=== PATIENT | male | born 1995 | race Caucasian/White ===

== ENCOUNTER 2024-11-20 09:36 | Emergency (ER) | payer SELFPAY ==
[2024-11-20 10:05] VITALS: BP 127/90; PULSE 81; RESP 18; TEMP 36.8; O2SAT 98; BMI 23.6
--- NOTE | 2024-11-20 10:17 | W.ED.NAVMDI ---
HPI - Nausea/Vomiting/Diarrhea General: Chief complaint: Nausea/Vomiting/Diarrhea Stated complaint: n/v Time Seen by Provider: 11/20/24 10:12 Source: patient Mode of arrival: ambulatory Limitations: no limitations History of Present Illness: 29-year-old male states has been having nausea vomiting diarrhea since this morning at 2 AM. He states not been able to tolerate any liquids states he feels dehydrated been having spasms. He denies any abdominal pain denies any fever. Associated nausea: Yes Associated symtoms: Reports nausea; Denies chest pain, dysuria or headache(s) Related Data Previous Rx's Medication Instructions Recorded ondansetron 4 mg disintegrating 4 mg PO Q6H PRN nausea and 11/20/24 tablet vomiting #14 tabs Allergies Allergy/AdvReac Type Severity Reaction Status Date / Time No Known Allergies Allergy Verified 11/20/24 10:08 Review of Systems Const: Denies: fever(s), chills, body aches or change in appetite ENMT: Denies: throat pain or dental pain Card: Denies: chest pain Resp: Denies: dyspnea GI: Reports: nausea and vomiting; Denies: abdominal pain or diarrhea : Denies: dysuria Musc: Denies: neck pain or back pain Skin/Breast: Denies: rash Neuro: Denies: headache(s) Physical Exam Const: COMMON NORMALS: no acute distress, patient oriented x3 and healthy appearing HENMT: COMMON NORMALS: normocephalic and atraumatic HEAD & SCALP: normocephalic and atraumatic Eye: COMMON NORMALS: Equal, round and reactive pupils present PUPIL: Yes Equal, round and reactive pupils present Neck/C-Spine: COMMON NORMALS: full ROM and supple Chest: COMMONS NORMALS: normal inspection of the chest Resp: COMMON NORMALS: normal respiratory effort, No retractions, No use of accessory muscles and clear to auscultation bilaterally AUSCULTATION: clear to auscultation bilaterally Cardio: COMMON NORMALS: regular rate, regular rhythm and No murmurs present (Cardio) RATE: regular rate RHYTHM: regular rhythm GI: COMMON NORMALS: Normal to inspection, nondistended, normoactive bowel sounds present, Soft to palpation, non-tender and no masses PALPATION: Yes Soft to palpation Extremity: COMMON NORMALS: normal to inspection and full ROM Neuro: COMMON NORMALS: patient oriented x3, moves all extremities and no focal motor deficits Psych: COMMON NORMALS: mental status grossly normal, Normal thought process present and cooperative THOUGHT PROCESS: Normal thought process present Skin: COMMON NORMALS: no rashes or lesions noted and no wounds GENERAL SKIN EXAM: no rashes or lesions noted Course Vital Signs: Vital signs: Vital Signs Temperature 98.3 F 11/20/24 10:05 Pulse Rate 81 11/20/24 10:05 Respiratory Rate 18 11/20/24 10:05 Blood Pressure 127/90 11/20/24 10:05 Pulse Oximetry 98 11/20/24 10:05 Oxygen Delivery Me thod Room Air 11/20/24 10:05 MDM - Nausea/Vomiting/Diarrhea Medical Decision Making Patient presents here with vomiting diarrhea is likely viral in origin he feels improved here after fluids and nausea medicine he is able to tolerate p.o. abdominal exam is benign no signs of acute surgical abdomen he is stable for discharge follow-up with PCP return if worsening. Medical Records I reviewed the patient's medical records. Lab Data I reviewed the patient's lab results. 11/20/24 10:26 11/20/24 10:26 Laboratory Results WBC 11.50 10^3/uL (3.29-11.43) H 11/20/24 10:26 RBC 5.65 10^6/uL (3.85-5.65) 11/20/24 10:26 Hgb 16.80 g/dL (11.27-16.99) 11/20/24 10:26 Hct 48.0 % (37-53) 11/20/24 10:26 MCV 85.0 fl (82-101) 11/20/24 10:26 MCH 29.7 pg (27-33) 11/20/24 10:26 MCHC 35.0 g/dL (30-55) 11/20/24 10:26 RDW 13.3 % (12.1-15.1) 11/20/24 10:26 Plt Count 291 10^3/cmm (157-399) 11/20/24 10:26 MPV 9.1 fL (7.4-10.4) 11/20/24 10:26 Neut % (Auto) 90.5 % 11/20/24 10:26 Lymph % (Auto) 1.5 % 11/20/24 10:26 [place] % (Auto) 7.4 % 11/20/24 10:26 Eos % (Auto) 0.0 % 11/20/24 10:26 Baso % (Auto) 0.3 % 11/20/24 10:26 Neut # (Auto) 10.41 10^3/uL (1.8-7.7) H 11/20/24 10:26 Lymph # (Auto) 0.2 10^3/uL (0.8-4.8) L 11/20/24 10:26 [place] # (Auto) 0.9 10^3/uL (0.2-0.9) 11/20/24 10: Eos # (Auto) 0.0 10^3/uL (0.0-0.8) 11/20/24 10: Baso # (Auto) 0.0 10^3/uL (0.0-0.1) 11/20/24 10: Nucleated RBC % (auto) 0 % 11/20/24 10: Nucleated RBCs # 0.0 /100WBC 11/20/24 10:26 Sodium 138 mmol/L (136-145) 11/20/24 10: Potassium 4.0 mmol/L (3.5-5.1) 11/20/24 10: Chloride 97 mmol/L (98-107) L 11/20/24 10: Carbon Dioxide 22 mmol/L (22-29) 11/20/24 10:26 Anion Gap 23.0 (5-19) H 11/20/24 10:26 BUN 20 mg/dL (6-20) 11/20/24 10:26 Creatinine 1.2 mg/dL (0.7-1.2) 11/20/24 10:26 GFR Calculation 71.1 mL/min (90-130) L 11/20/24 10:26 Glucose 157 mg/dL (65-115) H 11/20/24 10: Calculated Osmolality 292 mOsm/kg (285-295) 11/20/24 10:26 Calcium 9.6 mg/dL (8.5-10.5) 11/20/24 10:26 Total Bilirubin 1.5 mg/dL (0.15-1.2) H 11/20/24 10:26 AST 21 U/L (0-40) 11/20/24 10:26 ALT 24 U/L (0-41) 11/20/24 10:26 Alkaline Phosphatase 80 U/L (40-130) 11/20/24 10:26 Total Protein 7.9 g/dL (6.6-8.7) 11/20/24 10:26 Albumin 4.9 g/dL (3.5-5.2) 11/20/24 10:26 Globulin 3.0 g/dL (1.3-4.6) 11/20/24 10:26 Lipase 35 U/L (13-60) 11/20/24 10:26 No radiology studies performed this visit Discharge Plan Discharge Patient Disposition: Home Clinical Impression: Vomiting Condition: Stable Prescriptions: New ondansetron 4 mg tablet,disintegrating 4 mg PO Q6H PRN (Reason: nausea and vomiting) Qty: 14 0RF Discharge Orders: Discharge ED (Routine); Ordered 11/20/24 Ordered By: Niecy Nicole Discharge Diet: Advance as tolerated Discharge Activity: Resume usual activity Patient Instructions: Acute Nausea and Vomiting (ED) Coding Level of Care Code 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
[2024-11-20 10:38] VITALS: PULSE 83; O2SAT 96
[2024-11-20 10:38] LABS: Basophils % 0.3 %; Lymphocytes # 0.2 10^3/uL (0.8-4.8); Lymphocytes % 1.5 %; Mean Corpuscular Hemoglobin 29.7 pg (27-33); Mean Platelet Volume 9.1 fL (7.4-10.4); Monocytes # 0.9 10^3/uL (0.2-0.9); Monocytes % 7.4 %; Neutrophils # 10.41 10^3/uL (1.8-7.7); Neutrophils % 90.5 %; Nucleated Red Blood Cells % 0 %; Platelet Count 291 10^3/cmm (157-399); Red Blood Count 5.65 10^6/uL (3.85-5.65); Red Cell Distribution Width 13.3 % (12.1-15.1)
[2024-11-20 10:52] LABS: Alanine Aminotransferase 24 U/L (0-41); Albumin Level 4.9 g/dL (3.5-5.2); Alkaline Phosphatase 80 U/L (40-130); Aspartate Amino Transferase 21 U/L (0-40); Blood Urea Nitrogen 20 mg/dL (6-20); Calcium 9.6 mg/dL (8.5-10.5); Carbon Dioxide 22 mmol/L (22-29); Chloride 97 mmol/L (98-107); Creatinine Clr Calc Pharmacy 93.8784; Glomerular Filtration Rate 71.1 mL/min (90-130); Glucose 157 mg/dL (65-115); Lipase 35 U/L (13-60); Osmolality Calculated 292 mOsm/kg (285-295); Sodium 138 mmol/L (136-145); Total Bilirubin 1.5 mg/dL (0.15-1.2); Total Protein 7.9 g/dL (6.6-8.7)
[2024-11-20] MEDS: sodium chloride 0.9% 1,000 ML 999 ML IV (10:55)
[2024-11-20] MEDS: diphenhydrAMINE 50 mg/mL SDV 1mL IVP (10:56)
[2024-11-20] MEDS: metoclopramide 5 mg/mL SDV 2 mL 10 MG IVP (10:58)
[2024-11-20 11:08] VITALS: PULSE 82; O2SAT 96
[2024-11-20] MEDS: LORazepam 2 mg/mL INJ 1 mL 0.5 MG IVP (11:32)
[2024-11-20 12:08] VITALS: BP 126/72; PULSE 90; O2SAT 96
[2024-11-20 12:40] VITALS: BP 131/77; PULSE 93; O2SAT 96
== END 2024-11-20 12:40 | disposition home or self-care (01) ==
PROVIDERS: Emergency Provider Emergency Medicine
DX: R11.2 Nausea with vomiting, unspecified (principal)
CPT/HCPCS: 80053; 83690; 85025; 96374; 96375; 99283; 99284; J1200; J2060; J2765; J7030